=== PATIENT | female | born 1995 | race Two or more races ===

== ENCOUNTER 2017-02-01 01:50 | Inpatient (IN) | payer OTHER ==
[2017-02-01] VITALS (7 sets, daily range): BP systolic 89–99; BP diastolic 44–48
[~2017-02-01] VITALS: Ht 165.1 cm; Wt 78.5 kg
--- NOTE | 2017-02-01 02:09 | NUR ---
PT ARRIVED TO ED TODAY C/O LEFT SIDED FLANK AND ABD PAIN. PER PT THE PAIN STARTED ON MONDAY AND HAS BECOME INCREASINGLY WORSE SINCE. PT HAS BEEN TREATING PAIN WITH MIDOL AND IT HAS SINCE STOPPED WORKING. VITAL SIGNS STABLE, NO S/SX OF DISTRESS NOTED.
[2017-02-01 02:54] LABS: PLATELET COUNT 257 x10^3mcL (130-400); RED CELL DISTRIBUTION WIDTH 13.1 % (11.5-14.5)
[2017-02-01 02:57] LABS: BASOPHIL % 3.6 % (0-2); CALCIUM 8.3 mg/dL (8.5-10.1); CARBON DIOXIDE 27.9 mmol/L (21-32); CHLORIDE SERUM 105 mmol/L (98-107); CREATININE SERUM 0.7 mg/dL (0.6-1.0); GFR1 > 60 mL/min; GLUCOSE SERUM 90 mg/dL (74-106); POTASSIUM SERUM 3.5 mmol/L (3.5-5.1); SODIUM SERUM 141 mmol/L (136-145)
[2017-02-01 03:00] LABS: UA SPECIFIC GRAVITY 1.025 (1.005-1.035); microscopic required? YES; urine erythrocyte 3+ (NEGATIVE)
[2017-02-01 03:02] LABS: ALBUMIN 3.4 g/dL (3.4-5.0); ALKALINE PHOSPHATASE 43 U/L (46-116); ALT/SGPT 14 U/L (14-59); AMYLASE 65 U/L (25-115); AST/SGOT 14 U/L (15-37); BILIRUBIN TOTAL 0.27 mg/dL (0.20-1.00); LIPASE 122 IU/L (73-393); TOTAL PROTEIN, SERUM 6.6 g/dL (6.4-8.2)
--- NOTE | 2017-02-01 04:18 | NUR ---
US AT BEDSIDE
--- NOTE | 2017-02-01 05:39 | NUR ---
REPORT CALLED AND GIVEN TO WANDA KAUR VIA TELEPHONE. ALL QUESTIONS AND CONCERNS ADDRESSED.
--- NOTE | 2017-02-01 06:10 | NUR ---
PT TRANSFERRED TO [facility] AT THIS TIME WITH ERT AND RN AT BEDSIDE.
--- NOTE | 2017-02-01 06:41 | NUR ---
RECEIVED PT. FROM ER VIA TONY ACCOMPANIED BY ER NURSE. PT. IS AWAKE, ALERT, ORIENTED X4. C/O MILD ABD. PAIN. RECEIVED PAIN MEDICATION IN ER. IV NS STARTED AT [facility]. V.S DONE. PT. ON TELE 26, NSR. BOYFRIEND AT BEDSIDE. CALL LIGHT PLACED WITHIN REACH. WILL ENDORSE PT. CARE TO INCOMING NURSE.
[2017-02-01 06:55] LABS: MAGNESIUM 1.7 mg/dL (1.8-2.4); PHOSPHOROUS 4.5 mg/dL (2.5-4.9)
[2017-02-01 06:59] LABS: CHOLESTEROL/HDL RATIO 2.1
[2017-02-01 07:05] LABS: FREE T4 0.96 ng/dL (0.76-1.46); FREE THYROXINE INDEX 2.4 ug/dL (1.4-4.5); T4(THYROXINE) 6.8 ug/dL (4.7-13.3)
[2017-02-01 07:14] LABS: T3 TOTAL 1.06 ng/mL
--- NOTE | 2017-02-01 13:19 | NUR ---
PT C/O ABD. PAIN WITH NAUSEA. MEDICATED WITH NORCO AND ZOFRAN IVP GIVEN. NURSE ADELINE AWARE.
--- NOTE | 2017-02-01 19:41 | NUR ---
PATIENT'S PLAN OF CARE WAS DISCUSSED AND REVIEWED WITH LIBERAL ARTS DEAN:EDGARDO KRAMER
--- NOTE | 2017-02-01 20:00 | NUR ---
AT 1925 PT C/O LEFT QUADRANT PAIN RADIATING TO THE LOWER BACK 03/09 MEDICATED PT WITH MOTRIN ORDERED PRN ,PT'S LUNGS SOUNDS CTA , ABS SOFT BS ACTIVE X4 , ON TELE NUMBER 26 THAT SHOWS NSR HR 78. PIV TO LAC INTACT INFUSING WELL NS AT 100ML/HR . WILL CON'T TO MONITOR PT .
--- NOTE | 2017-02-01 20:53 | NUR ---
BP 89/45 MAP 58 , 88/56 MAP 56, PT'S ASYMPTOMATIC AT THE MOMENT , DR NEWTON AND CHARGE NURSE AWARE . WILL CON'T TO MONITOR PT CLOSELY.
--- NOTE | 2017-02-01 21:17 | NUR ---
RECHECKED BP 99/44 HR 64 MAP 68, PT'S ASYMPTOMATIC AT THE MOMENT , WILL CON'T TO MONITOR , CHARGE NURSE AND DR OLIVIA AWARE.
--- NOTE | 2017-02-01 22:32 | NUR ---
RECEIVED PT IN NO ACUTE DISTRESS, LAYING IN BED COMFORTLY, IV INTACT AND PATENT, CALL LIGHT WITHIN REACH, WILL CONT TO MONITOR.
--- NOTE | 2017-02-02 01:15 | NUR ---
I HAVE REVIEWED THE DATA COLLECTION BY ALEIDA (NAME):reji bowman ENTERED ON (DATE/TIME):191902/01/17 I CONCUR WITH THE DATA AND ANY EXCEPTIONS OR COMMENTS ARE LISTED BELOW:
--- NOTE | 2017-02-02 05:14 | NUR ---
SLEPT PERIODICALLY THROUGHOUT SHIFT, ALL NEEDS MET AND ATTENDED, NO SIGNIFICANT CHANGES, IV INTACT AND PATENT, REMAINS IN STABLE CONDITION, WILL CONT TO MONITOR AND ENDORSE ALL CARE TO ONCOMING NURSE.
--- NOTE | 2017-02-02 05:55 | NUR ---
BP 90/40, MAP 57, PT IN NO ACUTE DISTRESS, ASYMPTOMATIC, DOCTOR INFORMED, WILL CONT TO MONITOR.
[2017-02-02 06:08] LABS: BASOPHIL % 0.6 % (0-2); PLATELET COUNT 168 x10^3mcL (130-400); RED CELL DISTRIBUTION WIDTH 13.8 % (11.5-14.5)
[2017-02-02 06:26] LABS: CHLORIDE SERUM 107 mmol/L (98-107); CREATININE SERUM 0.6 mg/dL (0.6-1.0); GFR1 > 60 mL/min; GLUCOSE SERUM 92 mg/dL (74-106); MAGNESIUM 1.8 mg/dL (1.8-2.4); PHOSPHOROUS 4.7 mg/dL (2.5-4.9); POTASSIUM SERUM 3.7 mmol/L (3.5-5.1); SODIUM SERUM 140 mmol/L (136-145)
[2017-02-02 06:29] VITALS: BP 90/40
[2017-02-02 10:28] VITALS: BP 96/46
[2017-02-02 13:49] VITALS: BP 90/42
[2017-02-02 14:15] LABS: AMPHETAMINE QUAL UR NONE DETECTED (NEG <=1000)
[2017-02-02 17:22] VITALS: BP 90/47
--- NOTE | 2017-02-02 20:10 | NUR ---
RECEIVED PT IN BED WATCHING TV NO ACUTE DISTRESS NOTED, PT DENY PAIN AT THE MOMENT , ON TELE 26 THAT SHOWS NSR , PIV INTACT INFUSING WELL . WILL CON'T TO MONITOR PT CLOSELY .
--- NOTE | 2017-02-02 20:20 | NUR ---
I HAVE REVIEWED THE DATA COLLECTION BY ALEIDA (NAME):EDGARDO KRAMER ENTERED ON (DATE/TIME):02/02/17 I CONCUR WITH THE DATA AND ANY EXCEPTIONS OR COMMENTS ARE LISTED BELOW:
[2017-02-02 21:31] VITALS: BP 98/54
--- NOTE | 2017-02-03 01:09 | NUR ---
PT;S IN BED WITH EYES CLOSED , TELE NSR , PIV INTACT INFUSING WELL .
[2017-02-03 05:45] VITALS: BP 99/51
--- NOTE | 2017-02-03 06:14 | NUR ---
NO CHANGES OF CONDITION NOTED PT DENY PAIN ,AT THE MOMENT , ALL DUE MEDS GIVEN NO REACTION NOTED, PIV INTACT INFUSING WELL , TELE NSR.
[2017-02-03 06:30] LABS: BASOPHIL % 0.7 % (0-2); PLATELET COUNT 182 x10^3mcL (130-400); RED CELL DISTRIBUTION WIDTH 14.1 % (11.5-14.5)
[2017-02-03 07:14] LABS: CALCIUM 8.1 mg/dL (8.5-10.1); CARBON DIOXIDE 28.9 mmol/L (21-32); CHLORIDE SERUM 107 mmol/L (98-107); CREATININE SERUM 0.6 mg/dL (0.6-1.0); GFR1 > 60 mL/min; GLUCOSE SERUM 92 mg/dL (74-106); MAGNESIUM 1.7 mg/dL (1.8-2.4); PHOSPHOROUS 4.4 mg/dL (2.5-4.9); POTASSIUM SERUM 3.6 mmol/L (3.5-5.1); SODIUM SERUM 140 mmol/L (136-145)
--- NOTE | 2017-02-03 07:20 | NUR ---
RESTING IN BED, AROUSABLE TO LIGHT NOISE, ABLE TO VERBALIZE NEEDS WITH CLEAR SPEECH, REPORTS ABD PAIN 0/10, DENIES GI DISTRESS, ACTIVE BOWEL SOUNDS X4 QUADS, DENIES DYSURIA, VAGINAL ITCH OR IRRITATION, ON TELE 326 NSR ON MONITOR, BOYFRIEND AT BEDSIDE, CALL LIGHT WITHIN REACH, WILL CONTINUE TO PROVIDE CARE.
[2017-02-03 09:19] VITALS: BP 103/63
--- NOTE | 2017-02-03 09:45 | NUR ---
ABLE TO TAKE ALL MEDS WITHOUT GI DISTRESS.
[2017-02-03] MEDS ORDERED: LAC PO (10:56)
[2017-02-03] MEDS ORDERED: LEVAQUIN750 MG PO (10:59)
[2017-02-03 12:49] VITALS: BP 103/63
--- NOTE | 2017-02-03 13:25 | NUR ---
ABLE TO TOLERATE MEALS WITHOUT GI DISTRESS, DENIES VAGINAL DISCHARGE OR CRAMPING AT THIS TIME, CALL LIGHT WITHIN REACH.
--- NOTE | 2017-02-03 17:11 | NUR ---
REVIEWED DISCHARGE INSTRUCTIONS WITH PATIENT, INCLUDING FOLLOW UP APPOINTMENT WITH PCP ON 02/06/17, PATIENT VERBALIZED UNDERSTANDING OF DISCHARGE INSTRUCTIONS. IV D/C'D, CATH TIP INTACT, NO BLEEDING OR PHLEBITIS NOTED, COVERED WITH BANDAID. TELE MONITOR D/C'D. PATIENT IS WAITING FOR BOYFRIEND TO GET OUT OF WORK AND PICK HER UP.
[2017-02-07] MEDS ORDERED: LAC PO (15:14)
[2017-02-07] MEDS ORDERED: ZITHROMAX1 GM/Packe PO ×2 (15:14→15:53)
[2017-02-07] MEDS ORDERED: DOXYCYCLINE HY100 M2 PO (15:14)
== END 2017-02-03 17:18 | disposition home or self-care (01) | DRG 463 ==
LOC: ED 01:50 → DU 05:03
PROVIDERS: Emergency Medicine; ADMIT Family Medicine
DX: N12 Tubulo-interstitial nephritis, not specified as acute or chronic (principal); N17.0 Acute kidney failure with tubular necrosis; D64.9 Anemia, unspecified; E83.42 Hypomagnesemia; E83.51 Hypocalcemia
CPT/HCPCS: 83880; 84439; 87491; 87591; C9113; J0696; J1170; J2270; J2405; J3475; J7030; Q0092; Q0162

== ENCOUNTER 2017-09-13 21:16 | Emergency (ER) | payer OTHER ==
[~2017-09-13] VITALS: Ht 165.1 cm; Wt 70.8 kg
[~2017-09-13 21:16] MED LIST: DOXYCYCLINE HY100 M2 PO; LAC PO; LEVAQUIN750 MG PO; ZITHROMAX1 GM/Packe PO
[2017-09-13 21:20] VITALS: Ht 165.1 cm; Wt 70.8 kg
[2017-09-13 22:12] LABS: BASOPHIL % 0.4 % (0-2); PLATELET COUNT 200 x10^3mcL (130-400); RED CELL DISTRIBUTION WIDTH 14.1 % (11.5-14.5)
[2017-09-13 22:18] LABS: CALCIUM 8.5 mg/dL (8.5-10.1); CARBON DIOXIDE 25.9 mmol/L (21-32); CHLORIDE SERUM 105 mmol/L (98-107); CREATININE SERUM 0.5 mg/dL (0.6-1.0); GFR1 > 60 mL/min; GLUCOSE SERUM 101 mg/dL (74-106); POTASSIUM SERUM 4.1 mmol/L (3.5-5.1); SODIUM SERUM 138 mmol/L (136-145)
[2017-09-13 22:23] LABS: ALBUMIN 3.6 g/dL (3.4-5.0); ALKALINE PHOSPHATASE 41 U/L (46-116); ALT/SGPT 16 U/L (14-59); AST/SGOT 18 U/L (15-37); BILIRUBIN TOTAL 0.47 mg/dL (0.20-1.00)
[2017-09-13 23:21] VITALS: BP 112/55
== END 2017-09-13 23:21 | disposition home or self-care (01) ==
LOC: ED 21:16
PROVIDERS: Emergency Medicine
DX: R55 Syncope and collapse (principal)
CPT/HCPCS: 36415

== ENCOUNTER 2017-10-30 01:31 | Emergency (ER) | payer OTHER ==
[~2017-10-30] VITALS: Ht 165.1 cm; Wt 71.7 kg
[2017-10-30 02:00] VITALS: Ht 165.1 cm; Wt 71.7 kg
[2017-10-30 04:17] LABS: microscopic required? YES; urine erythrocyte 2+ (NEGATIVE)
[2017-10-30 04:38] VITALS: BP 138/65
== END 2017-10-30 04:38 | disposition left against medical advice (07) ==
LOC: ED 01:31
PROVIDERS: Emergency Medicine
DX: N76.0 Acute vaginitis (principal)

== ENCOUNTER 2018-07-05 12:29 | Emergency (ER) | payer OTHER ==
[~2018-07-05] VITALS: Ht 165.1 cm; Wt 72.1 kg
[2018-07-05 12:38] VITALS: Ht 165.1 cm; Wt 72.1 kg
[2018-07-05 13:46] LABS: UA SPECIFIC GRAVITY >=1.030 (1.005-1.035); microscopic required? YES; urine erythrocyte TRACE (NEGATIVE)
[2018-07-05 13:52] LABS: PLATELET COUNT 191 x10^3mcL (130-400); RED CELL DISTRIBUTION WIDTH 13.8 % (11.5-14.5)
[2018-07-05 16:40] VITALS: BP 136/78
== END 2018-07-05 16:40 | disposition home or self-care (01) ==
LOC: ED 12:29
PROVIDERS: Emergency Medicine
DX: O23.41 Unspecified infection of urinary tract in pregnancy, first trimester (principal); N83.209 Unspecified ovarian cyst, unspecified side; Z3A.01 Less than 8 weeks gestation of pregnancy
CPT/HCPCS: 36415; 82962